=== PATIENT | female | born 1955 | race American Indian/Alaskan Native ===

== ENCOUNTER 2020-04-27 11:29 | Emergency (ER) | payer SELFPAY ==
--- NOTE | 2020-04-27 12:17 | Event Note ---
ED Screening Note ED Screening Note: [facility] SENT FOR INC WBC LOW GRADE FEVERS PREOP FOR OVARIAN MASS This initial assessment/diagnostic orders/clinical plan/treatment(s) is/are subject to change based on patients health status, clinical progression and re- assessment by fellow clinical providers in the ED. Further treatment and workup at subsequent clinical providers discretion. Patient/guardian urged not to elope from the ED as their condition may be serious if not clinically assessed and managed. Initial orders include: LABS LACTATE BC TO MAIN
[2020-04-27 12:44] VITALS: BP 136/92
[2020-04-27 13:06] LABS: Mean Corpuscular HGB Conc 33 % (30-34); Mean Corpuscular Volume 86 fl (79-97); Platelet Count 341 K/mm3 (140-440); Red Blood Count 4.17 M/mm3 (3.65-5.03)
[2020-04-27 13:43] LABS: Alanine Aminotransferase 10 units/L (7-56); Albumin 3.7 g/dL (3.9-5); BUN/Creatinine Ratio 10; Blood Urea Nitrogen 7 mg/dL (7-17); Calcium 9.3 mg/dL (8.4-10.2); Hemolysis Index 1
[2020-04-27 15:51] LABS: Band Neutrophils # (Manual) 0.5 K/mm3; Basophils % (Manual) 0 % (0.0-1.8); Eosinophils % (Manual) 0 % (0.0-4.3); Total Cells Counted 100
[2020-04-27 15:52] LABS: Hypochromasia Few; Platelet Estimate Consistent w Auto
== END 2020-04-27 23:40 | disposition left against medical advice (07) ==
LOC: ED 11:29
DX: R50.9 Fever, unspecified (principal); Z53.21 Procedure and treatment not carried out due to patient leaving prior to being seen by health care provider
CPT/HCPCS: 36415; 80053; 85007; 85025